=== PATIENT | female | born 1975 | race Two or more races ===

== ENCOUNTER 2018-12-28 12:52 | Emergency (ER) | payer MEDICAID ==
[~2018-12-28] VITALS: Ht 162.6 cm; Wt 73.9 kg
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
[2018-12-28 13:04] VITALS: BP 140/99
[2018-12-28] MEDS ORDERED: Acetaminophen 500mg (ES) tab ORAL ONE (13:15)
[2018-12-28] MEDS ORDERED: Methocarbamol 500mg tab ORAL ONE (13:15)
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
--- NOTE | 2018-12-28 13:26 | NUR ---
ED Nurse Note: Pt went down to CT.
--- NOTE | 2018-12-28 13:40 | NUR ---
ED Nurse Note: Pt back from CT.
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
[2018-12-28] MEDS ORDERED: TRAMADOL HCL50 MG ORAL (15:23)
[2018-12-28] MEDS ORDERED: ROBAXIN500 MG PO (15:23)
[2018-12-28] MEDS ORDERED: TYLENOL EXTRA500 MG ORAL (15:23)
[2018-12-28] MEDS ORDERED: LIDOCAINE700 M1 TP (15:23)
[2018-12-28 15:27] VITALS: BP 133/66
--- NOTE | 2018-12-28 15:28 | NUR ---
ER DISCHARGE NOTE: Patient is cleared to be discharged per ERMD, pt is aox4, on room air, with stable vital signs. pt was given dc and prescription instructions, pt was able to verbalize understanding, pt id band removed without complications. pt is able to ambulate with steady gait. pt took all belongings.
== END 2018-12-28 15:28 | disposition home or self-care (01) ==
LOC: EMR 13:30
DX: S13.4XXA Sprain of ligaments of cervical spine, initial encounter (principal); S20.00XA Contusion of breast, unspecified breast, initial encounter; V43.52XA Car driver injured in collision with other type car in traffic accident, initial encounter; Y92.488 Other paved roadways as the place of occurrence of the external cause
CPT/HCPCS: 71250; 72125; 99284

== ENCOUNTER 2019-05-20 19:47 | Emergency (ER) | payer MEDICAID ==
[~2019-05-20] VITALS: Ht 162.6 cm; Wt 77.1 kg
[~2019-05-20 19:47] MED LIST: LIDOCAINE700 M1 TP; ROBAXIN500 MG PO; TRAMADOL HCL50 MG ORAL; TYLENOL EXTRA500 MG ORAL
[2019-05-20] MEDS ORDERED: SINGULAIR10 MG ORAL (19:56)
--- NOTE | 2019-05-20 20:10 | NUR ---
ER Nurse Note: Pt came from home c/o difficulty breathing for 1 week. Pt stated she had same s/s in the past and was treated with breathing treatments effectively. Pt has wheezes; no resp distress. Will continue to montior.
[2019-05-20] MEDS ORDERED: Albuterol ud Inhalation HHN ONE (20:30)
[2019-05-20] MEDS ORDERED: Albuterol/Ipratropium 3ml neb HHN ONE ×2 (20:45→21:15)
--- NOTE | 2019-05-20 21:01 | Emergency Room Report ---
History of Present Illness General Chief Complaint: Upper Respiratory Illness Source: Patient Present Illness HPI 43-year-old female presents to the emergency department complaining of nonpainful persistent cough with consistent wheezing x1 week. Patient with history of bronchitis she reports being out of her inhaler and her symptoms have been progressive. Patient denies fevers or chills she denies swelling in the lower extremities, chest pain, palpitations, sputum production. Patient denies cardiac history she reports some shortness of breath. No recent Travel or ill contacts. Denies sore throat, headache, neck pain/stiffness nasal congestion or rhinorrhea. Patient is up-to-date with vaccinations. Allergies: Coded Allergies: No Known Allergies (Unverified , 12/28/18) Patient History Past Medical History: see triage record Past Surgical History: none Pertinent Family History: none Last Menstrual Period: n/a Reviewed Nursing Documentation: PMH: Agreed; PSxH: Agreed Nursing Documentation-PM Past Medical History: No History, Except For Review of Systems All Other Systems: negative except mentioned in HPI Physical Exam Vital Signs Date Time Temp Pulse Resp B/P (MAP) Pulse Ox O2 Delivery O2 Flow Rate FiO2 05/20/19 19:50 98.2 82 18 140/94 (109) 93 Room Air 05/20/19 20:26 21 Sp02 EP Interpretation: reviewed, normal General Appearance: no apparent distress, alert, GCS 15, non-toxic Head: normocephalic, atraumatic Eyes: bilateral eye normal inspection, bilateral eye PERRL ENT: hearing grossly normal, normal voice Neck: full range of motion Respiratory: chest non-tender, lungs clear, normal breath sounds, no rhonchi, no respiratory distress, no accessory muscle use, speaking full sentences, wheezing Cardiovascular #1: regular rate, rhythm, no edema, normal capillary refill Musculoskeletal: back normal, gait/station normal, normal range of motion, non- tender Neurologic: alert, oriented x3, responsive, motor strength/tone normal, sensory intact, speech normal, grossly normal Psychiatric: judgement/insight normal Lymphatic: no adenopathy Medical Decision Making PA Attestation Dr. Golden Is my supervising Physician whom patient management has been discussed with. Diagnostic Impression: Primary Impression: Bronchitis Additional Impression: Acute bronchitis with asthma with acute exacerbation ER Course 43-year-old female presents to the emergency department complaining of nonpainful persistent cough with consistent wheezing x1 week. Patient with history of bronchitis she reports being out of her inhaler and her symptoms have been progressive. Patient denies fevers or chills she denies swelling in the lower extremities, chest pain, palpitations, sputum production. Patient denies cardiac history she reports some shortness of breath. No recent Travel or ill contacts. Denies sore throat, headache, neck pain/stiffness nasal congestion or rhinorrhea. Patient is up-to-date with vaccinations. Ddx considered but are not limited to URI, pneumonia, PE, strep pharyngitis, meningitis. Vital signs: Pt.is afebrile VS are WNL H&PE are most consistent with bronchitis ORDERS: CXR- WNL ED INTERVENTIONS: -Albuterol HHN -DuoNebs x 2 - 60 mg Prednisone PO DISCHARGE: At this time pt. is stable for d/c to home. Will provide printed patient care instructions, and any necessary prescriptions. Care plan and follow up instructions have been discussed with the patient prior to discharge. Other X-Ray Diagnostic Results Other X-Ray Diagnostic Results : # of Views/Limited Vs Complete: 1 View Indication: Pain EP Interpretation: Yes PA Xray: Interpretation reviewed, by supervising MD, and agrees with findings. Interpretation: no dislocation, no soft tissue swelling, no fractures Impression: No acute disease Electronically Signed by: Madiha Allen PA-C Last Vital Signs Date Time Temp Pulse Resp B/P (MAP) Pulse Ox O2 Delivery O2 Flow Rate FiO2 05/20/19 20:57 105 20 99 Room Air 21 05/20/19 19:50 98.2 140/94 (109) Disposition: HOME, SELF-CARE Condition: Stable Scripts Prednisone* (PREDNISONE*) 20 Mg Tablet 40 MG ORAL DAILY for 5 Days, #10 TAB Prov: Madiha Allen 05/20/19 Nebulizer (MINI PLUS NEBULIZER) 1 Each Each EACH MC, #1 Prov: Madiha Allen 05/20/19 Albuterol Sulfate* (ALBUTEROL SULFATE HHN*) 2.5 Mg/3 Ml Vial.neb 3 ML INH Q4H PRN for Shortness of Breath, #30 EA Prov: Madiha Allen 05/20/19 Albuterol Sulfate* (ALBUTEROL SULFATE MDI*) 8.5 Gm Hfa.aer.ad 2 PUFF INH Q3H, #1 INH 0 Refills Prov: Madiha Allen 05/20/19 Codeine/Promethazine Hcl* (PROMETHAZINE-CODEINE SYRUP*) 118 Ml Syrup 5 ML ORAL Q6H PRN for For Cough, #120 ML 0 Refills Prov: Madiha Allen 05/20/19 Levofloxacin* (LEVAQUIN*) 500 Mg Tablet 500 MG ORAL DAILY for 7 Days, #7 TAB Prov: Madiha Allen 05/20/19 Patient Instructions: Acute Bronchitis, [id number] Additional Instructions: Take medications as directed. Follow up with a Primary Care Provider in 3-5 days, even if your symptoms have resolved. --Please review list of primary care clinics, if you do not already have a primary care provider Return sooner to ED if new symptoms occur, or current symptoms become worse. Do not drink alcohol, drive, or operate heavy machinery while taking Cough Syrup as this may cause drowsiness. - Please note that this Emergency Department Report was dictated using [employer] equipment repairer technology software, occasionally this can lead to erroneous entry secondary to interpretation by the dictation equipment. Madiha Allen May 20, 2019 21:01
[2019-05-20] MEDS ORDERED: ALBUTEROL SULF8.5 GM INH (21:42)
[2019-05-20] MEDS ORDERED: PROMETHAZINE-C118 M1 ORAL (21:42)
[2019-05-20] MEDS ORDERED: MINI PLUS NEBU1 EACH MC (21:42)
[2019-05-20] MEDS ORDERED: LEVAQUIN500 MG ORAL (21:42)
[2019-05-20] MEDS ORDERED: PREDNISONE20 MG ORAL (21:42)
[2019-05-20] MEDS ORDERED: ALBUTEROL2.5 MG/3 M INH (21:42)
--- NOTE | 2019-05-20 21:50 | Diagnostic Imaging Report ---
EXAM: XR Chest, 1 View CLINICAL HISTORY: PAIN TECHNIQUE: Frontal view of the chest. COMPARISON: No relevant prior studies available. FINDINGS: Lungs: Unremarkable. No consolidation. Pleural space: Unremarkable. No pneumothorax. Heart: Unremarkable. No cardiomegaly. Mediastinum: Unremarkable. Bones/joints: Unremarkable. IMPRESSION: No acute findings
[2019-05-20 22:30] VITALS: BP 140/94
--- NOTE | 2019-05-20 22:30 | NUR ---
ER Nurse Note: Pt seen, treated, medically cleared for discharge by ERMD. Discharge instuctions and prescriptions given with repeat verbalization by pt. Emphasized to follow up with primay care provider; take whole course of medication. Explained each medication. All orders completed per ERMD orders. Pt a&ox4, VSS, no signs of distress. ID band removed. All questions answered per pt's questions. Pt left with all belongings, left with own transportation.
== END 2019-05-20 22:30 | disposition home or self-care (01) ==
LOC: EMR 21:35
DX: J20.9 Acute bronchitis, unspecified (principal); J45.901 Unspecified asthma with (acute) exacerbation
CPT/HCPCS: 71045; 94640; 94664; 99284; J7512; J7620

== ENCOUNTER 2019-09-12 08:43 | Emergency (ER) | payer MEDICAID ==
[~2019-09-12] VITALS: Ht 165.1 cm; Wt 72.6 kg
[~2019-09-12 08:43] MED LIST changes: +ALBUTEROL SULF8.5 GM INH; +ALBUTEROL2.5 MG/3 M INH; +LEVAQUIN500 MG ORAL; +MINI PLUS NEBU1 EACH MC; +PREDNISONE20 MG ORAL; +PROMETHAZINE-C118 M1 ORAL; +SINGULAIR10 MG ORAL
--- NOTE | 2019-09-12 08:56 | NUR ---
ED Nurse Note: Patient walked into ED from home c/o coughing green phlegms, congestion and chest tightness for 3 days. patient denies any pain at this time. patient is alert awake x4 ambulatory steady gait, breathing unlabored and even, speaking in full sentences. patient placed on a hospital gown, attached on a hall monitor.
[2019-09-12 09:04] VITALS: BP 142/88
--- NOTE | 2019-09-12 09:05 | Emergency Room Report ---
History of Present Illness General Chief Complaint: Flu Like Symptoms Source: Patient Present Illness HPI 44-year-old female history of bronchitis presents with cough, congestion, shortness of breath x2 days, she just took albuterol before coming to the ED which helped a little bit, no aggravating factors severity is moderate, she does endorse some chest tightness with her breathing, severity is mild, constant she does endorse some aches, and chills but no objective fevers, no chest pain, no nausea no vomiting no dyspnea on exertion patient presents for evaluation Allergies: Coded Allergies: No Known Allergies (Unverified , 12/28/18) Patient History Past Medical History: see triage record Last Menstrual Period: no period Now: No Reviewed Nursing Documentation: PMH: Agreed; PSxH: Agreed Nursing Documentation-PMH Past Medical History: No History, Except For Hx Cardiac Problems: No - bronchitis Review of Systems All Other Systems: negative except mentioned in HPI Physical Exam Vital Signs Date Time Temp Pulse Resp B/P (MAP) Pulse Ox O2 Delivery O2 Flow Rate FiO2 09/12/19 08:46 98.8 111 18 143/84 (103) 97 Room Air Sp02 EP Interpretation: reviewed, normal General Appearance: well appearing, no apparent distress, alert Head: normocephalic, atraumatic Eyes: bilateral eye PERRL, bilateral eye EOMI ENT: uvula midline, moist mucus membranes, nasal congestion Neck: supple, thyroid normal, supple/symm/no masses Respiratory: no respiratory distress, no retraction, no accessory muscle use, wheezing - mild Cardiovascular #1: normal peripheral pulses, no edema, no gallop, no murmur, tachycardia Gastrointestinal: non tender, soft, no guarding, no rebound Musculoskeletal: normal inspection Neurologic: alert, oriented x3 Psychiatric: mood/affect normal Skin: no rash, warm/dry Medical Decision Making Diagnostic Impression: Primary Impression: Upper respiratory infection Qualified Codes: J06.9 - Acute upper respiratory infection, unspecified Additional Impression: Asthma attack Qualified Codes: J45.41 - Moderate persistent asthma with (acute) exacerbation ER Course 44-year-old female presents with cough, congestion, differential diagnosis includes pneumonia, asthma exacerbation, URI Patient states she recently took steroids. Patient found to have an elevated white count which could be combined by her recent steroid use over the past 1 month Patient felt better after DuoNeb administration, rate reevaluation 9:43 AM, breathing has cleared no longer wheezing Will provide patient with a work note, strict return precautions, will provide a steroid burst Disposition home w/ return precautions Laboratory Tests Test 09/12/19 09:05 09/12/19 09:10 White Blood Count 21.1 K/UL (4.8-10.8) H Red Blood Count 6.03 M/UL (4.20-5.40) H Hemoglobin 13.8 G/DL (12.0-16.0) Hematocrit 43.4 % (37.0-47.0) Mean Corpuscular Volume 72 FL (80-99) L Mean Corpuscular Hemoglobin 22.9 PG (27.0-31.0) L Mean Corpuscular Hemoglobin Concent 31.8 G/DL (32.0-36.0) L Red Cell Distribution Width 16.9 % (11.6-14.8) H Platelet Count 417 K/UL (150-450) Mean Platelet Volume 6.5 FL (6.5-10.1) Neutrophils (%) (Auto) % (45.0-75.0) Lymphocytes (%) (Auto) % (20.0-45.0) Monocytes (%) (Auto) % (1.0-10.0) Eosinophils (%) (Auto) % (0.0-3.0) Basophils (%) (Auto) % (0.0-2.0) Neutrophils % (Manual) Pending Lymphocytes % (Manual) Pending Platelet Estimate Pending Platelet Morphology Pending Sodium Level 138 MMOL/L (136-145) Potassium Level 3.1 MMOL/L (3.5-5.1) L Chloride Level 107 MMOL/L (98-107) Carbon Dioxide Level 26 MMOL/L (21-32) Anion Gap 5 mmol/L (5-15) Blood Urea Nitrogen 9 mg/dL (7-18) Creatinine 0.9 MG/DL (0.55-1.30) Estimate Glomerular Filtration Rate > 60 mL/min (>60) Glucose Level 107 MG/DL (74-106) H Calcium Level 8.6 MG/DL (8.5-10.1) Total Bilirubin 0.4 MG/DL (0.2-1.0) Aspartate Amino Transferase (AST) 26 U/L (15-37) Alanine Aminotransferase (ALT) 39 U/L (12-78) Alkaline Phosphatase 113 U/L (46-116) Total Protein 8.2 G/DL (6.4-8.2) Albumin 3.5 G/DL (3.4-5.0) Globulin 4.7 g/dL Albumin/Globulin Ratio 0.7 (1.0-2.7) L Urine HCG, Qualitative Negative (NEGATIVE) Microbiology Date/Time Source Procedure Growth Status 09/12/19 09:10 Nasal Nares - Final Complete 09/12/19 09:10 Nasal Nares - Final Complete Chest X-Ray Diagnostic Results Chest X-Ray Diagnostic Results : Chest X-Ray Ordered: Yes Indication: Other - cough EP Interpretation: Yes Interpretation: no consolidation, no effusion, no pneumothorax, no acute cardiopulmonary disease Impression: No acute disease Electronically Signed by: aMnny Golden MD Last Vital Signs Date Time Temp Pulse Resp B/P (MAP) Pulse Ox O2 Delivery O2 Flow Rate FiO2 09/12/19 08:46 98.8 111 18 143/84 (103) 97 Room Air Disposition: HOME, SELF-CARE Condition: Stable Scripts Azithromycin* (ZITHROMAX*) 250 Mg Tablet 250 MG ORAL DAILY, #6 TAB 0 Refills Take two tables once daily for 1 day, then one tablet once daily for 4 days. Prov: Manny Golden MD 09/12/19 Albuterol Sulfate* (ALBUTEROL SULFATE MDI*) 8.5 Gm Hfa.aer.ad 2 PUFF INH Q4H PRN for cough/wheezing, #1 EA 0 Refills Prov: Manny Golden MD 09/12/19 Prednisone* (PREDNISONE*) 50 Mg Tablet 50 MG ORAL DAILY, #4 TAB 0 Refills Prov: Manny Golden MD 09/12/19 Referrals: [facility] Departure Forms: Return to Work Return to Work Date: Sep 19, 2019 Patient Instructions: Asthma, Adult, [id number], Upper Respiratory Infection , Adult, [id number] Additional Instructions: The patient was provided with discharge instructions, notified to follow-up with a primary care doctor and or specialist in the next 24-48 hours, and to return to the ED if they have worsening of their symptoms. Please note that this report is being documented using DRAGON technology. This can lead to erroneous entry secondary to incorrect interpretation by the dictating instrument. Manny Golden MD Sep 12, 2019 09:05
--- NOTE | 2019-09-12 09:10 | NUR ---
ED Nurse Note: cxr was done bedside.
[2019-09-12] MEDS: Albuterol ud Inhalation HHN SCH ×2 (09:15→09:16)
[2019-09-12] MEDS: Ipratropium 0.02% Inh Soln 2.5ml UD HHN SCH ×2 (09:15→09:16)
[2019-09-12 09:18] LABS: HEMATOCRIT 43.4 % (37.0-47.0); HEMOGLOBIN 13.8 G/DL (12.0-16.0); MEAN CORPUSCULAR VOLUME 72 FL (80-99); PLATELET COUNT 417 K/UL (150-450); RED BLOOD COUNT 6.03 M/UL (4.20-5.40); RED CELL DISTRIBUTION WIDTH 16.9 % (11.6-14.8); WHITE BLOOD COUNT 21.1 K/UL (4.8-10.8)
[2019-09-12 09:32] LABS: ANION GAP 5 mmol/L (5-15); BLOOD UREA NITROGEN 9 mg/dL (7-18); CALCIUM 8.6 MG/DL (8.5-10.1); CARBON DIOXIDE 26 MMOL/L (21-32); CHLORIDE 107 MMOL/L (98-107); CREATININE 0.9 MG/DL (0.55-1.30); POTASSIUM 3.1 MMOL/L (3.5-5.1); SODIUM 138 MMOL/L (136-145)
[2019-09-12 09:36] LABS: ALANINE AMINOTRANSFERASE 39 U/L (12-78); ALBUMIN 3.5 G/DL (3.4-5.0); ALBUMIN/GLOBULIN RATIO 0.7 (1.0-2.7); ALKALINE PHOSPHATASE 113 U/L (46-116); ASPARTATE AMINO TRANSFERASE 26 U/L (15-37); BILIRUBIN,TOTAL 0.4 MG/DL (0.2-1.0)
[2019-09-12] MEDS ORDERED: PREDNISONE50 MG ORAL (09:45)
[2019-09-12] MEDS ORDERED: ZITHROMAX250 MG ORAL (09:45)
[2019-09-12] MEDS ORDERED: ALBUTEROL SULF8.5 GM INH (09:45)
[2019-09-12 09:53] VITALS: BP 139/70
--- NOTE | 2019-09-12 09:56 | Diagnostic Imaging Report ---
Indication: Cough Comparison: May 20, 2019 A single view chest radiograph was obtained. Findings: Cardiomediastinal appearance is within normal limits for age. The lungs are clear. Pulmonary vascularity is appropriate. The diaphragmatic contour is smooth and costophrenic angles are sharp. No pleural effusions are identified. The bones are unremarkable. Impression: No acute findings
--- NOTE | 2019-09-12 10:01 | NUR ---
ER DISCHARGE NOTE: Patient is cleared to be discharged per ERMD DR MONTGOMERY, pt is aox4, on room air, with stable vital signs. DR MONTGOMERY NOTED PATIENT's HR and lab results. pt was given dc and prescription instructions, pt was able to verbalize understanding, pt id band and iv site removed without complications. pt is able to ambulate with steady gait. pt took all belongings.
[2019-09-12 10:10] VITALS: BP 139/70
== END 2019-09-12 10:15 | disposition home or self-care (01) ==
LOC: EMR 09:04
DX: J06.9 Acute upper respiratory infection, unspecified (principal); J45.41 Moderate persistent asthma with (acute) exacerbation
CPT/HCPCS: 36415; 71045; 80053; 81025; 85007; 85025; 86710; 94640; 94664; 96360; J7030; J8540; Z7502; 99284